=== PATIENT | male | born 1990 | race Hispanic/Latino ===

== ENCOUNTER 2021-11-17 11:10 | Emergency (ER) | payer SELFPAY ==
[2021-11-17 12:33] LABS: Absolute Lymphocytes (CBC) 0.5 K/uL (0.7-4.9); Hematocrit 50.2 % (39.6-49.0); Lymphocytes % 4.2 % (15.3-44.8); MPV 9.2 fL (7.6-11.3); RBC Red Blood Cell Count 5.94 M/uL (4.33-5.43)
[2021-11-17 12:48] LABS: Albumin 4.6 g/dL (3.4-5.0); Bilirubin Direct 0.3 mg/dL (0-0.2); Potassium 3.3 mmol/L (3.5-5.1); Protein, Total 9.4 g/dL (6.4-8.2)
[2021-11-17] MEDS ORDERED: MORPHINE 4 MG/ML SYR ONE (12:56)
[2021-11-17] MEDS ORDERED: ONDANSETRON 4 MG/2 ML VIAL ONE (12:56)
[2021-11-17] MEDS ORDERED: Ringers Lactate 1,000 ML IV ONE (12:56)
[2021-11-17 12:59] LABS: Blood Morphology Comment NOT SEEN (NOT SEEN); Platelet Estimate ADEQ
[2021-11-17 13:58] LABS: Urine Blood 2+ (Negative); Urine Glucose Negative (Negative); Urine Protein 3+ (Negative); Urine Specific Gravity >=1.030 (1.005-1.030); Urine pH 6.5 (5.0-7.0)
[2021-11-17] MEDS ORDERED: NA CHLORIDE 0.9% 250 ML ONE (15:06)
[2021-11-17] MEDS ORDERED: METOCLOPRAMIDE 10 MG/2mL INJ ONE (15:06)
--- NOTE | 2021-11-17 15:15 | RAD REPORT ---
EXAM DESCRIPTION: CT - Abdomen Pelvis W Contrast - 11/17/2021 2:58 pm CLINICAL HISTORY: abdominal pain COMPARISON: No comparisons TECHNIQUE: Biphasic, helical CT imaging of the abdomen and pelvis was performed following 100 ml non -ionic IV contrast. No oral contrast administered. All CT scans are performed using dose optimization technique as appropriate and may include automated exposure control or mA/KV adjustment according to patient size. FINDINGS: No suspicious findings in the lung bases. Diffuse fatty infiltration of the liver is present with no focal lesion. No portal vein abnormality. Spleen and pancreas or Gallbladder and biliary tree are also without suspicious finding. Symmetric renal function is seen with no hydronephrosis or suspicious renal mass. No pyelonephritis o r acute parenchymal process. No bladder abnormalities. No adrenal abnormalities. No gastric dilatation or gastric wall thickening. The appendix is normal. There are numerous fluid-fi lled common non dilated distal small bowel loops. Pattern is nonspecific but can be seen with enterit is. A few subcentimeter mesenteric lymph nodes are present. No free air, free fluid or inflammatory stranding. No hernia, mass or bulky lymphadenopathy. No suspicious bony findings. IMPRESSION: Contrast enhanced CT abdomen and pelvis showing no emergent finding. A few fluid-filled small bowel loops present. Pattern is nonspecific but can be seen with neuritis. Gallbladder, biliary tree and pancreas are unremarkable. The liver is fatty infiltrated.
--- NOTE | 2021-11-17 15:43 | RAD REPORT ---
EXAM DESCRIPTION: US - Abdomen Exam Limited - 11/17/2021 3:18 pm CLINICAL HISTORY: ABD PAIN COMPARISON: Abdomen Pelvis W Contrast dated 11/17/2021 FINDINGS: No gallstones, measurable quantity of sludge or other abnormalities within the gallbladder lumen. There is no wall thickening or pericholecystic fluid. No common duct stone or biliary tree dilatation identified. IMPRESSION: No significant gallbladder or biliary tree finding.
--- NOTE | 2021-11-17 17:02 | EDPHYS ---
Physician Documentation [facility] Name: Mandeep Camara Age: 31 yrs Sex: Male : 1990 Arrival Date: 11/17/2021 Time: 11:20 Bed 27 Private MD: ROSELINE Physician Leandro Greer HPI: 11/17 11:33 This 31 yrs old Male presents to ER via Ambulatory with complaints of jmm Vomiting/Diarrhea. 11:33 The patient presents to the emergency department with nausea, vomiting, diarrhea, jmm abdominal pain. Onset: The symptoms/episode began/occurred gradually, 1 day(s) ago. Possible causes: unknown. The symptoms are aggravated by nothing. The symptoms are alleviated by nothing. Associated signs and symptoms: Pertinent positives: abdominal pain, fever, nausea, vomiting. The patient has not experienced similar symptoms in the past. This is a 31-year-old male no chronic conditions presents emerged part with complaints of epigastric abdominal pain beginning approximately 1 day ago along with vomiting and diarrhea. Patient states symptoms are exacerbated when he eats food. Patient feels like he cannot get any fluids down. Also complains of multiple episodes of diarrhea. Denies recent antibiotic use. Denies recent travel.. Historical: - Allergies: 11:30 No Known Allergies; aa5 - Home Meds: 11:30 None [Active]; aa5 - PMHx: 11:30 None; aa5 - PSHx: 11:30 None; aa5 - Immunization history:: Client reports having NOT received the Covid vaccine. Flu vaccine is not up to date. - Social history:: Smoking status: Patient denies any tobacco usage or history of. ROS: 11:33 Constitutional: Negative for fever, chills, and weight loss, Cardiovascular: Negative jmm for chest pain, palpitations, and edema, Respiratory: Negative for shortness of breath, cough, wheezing, and pleuritic chest pain. 11:33 Abdomen/GI: Positive for abdominal pain, nausea and vomiting. 11:33 All other systems are negative. Exam: 11:33 Constitutional: This is a well developed, well nourished patient who is awake, alert, jmm and in no acute distress. Head/Face: atraumatic. Eyes: EOMI, no conjunctival erythema appreciated ENT: Moist Mucus Membranes Neck: Trachea midline, Supple Chest/axilla: Normal chest wall appearance and motion. Cardiovascular: Regular rate and rhythm. No edema appreciated Respiratory: Normal respirations, no respiratory distress appreciated 11:33 Back: Normal ROM Skin: General appearance color normal MS/ Extremity: Moves all extremities, no obvious deformities appreciated, no edema noted to the lower extremities Neuro: Awake and alert Psych: Behavior is normal, Mood is normal, Patient is cooperative and pleasant 11:33 Abdomen/GI: Inspection: abdomen appears normal, Bowel sounds: normal, Palpation: abdomen is soft and non-tender, in all quadrants. Vital Signs: 11:28 BP 135 / 96; Pulse 107; Resp 18 S; Temp 97.8(TE); Pulse Ox 98% on R/A; Weight 104.33 kg aa5 (R); Height 5 ft. 8 in. (172.72 cm) (R); 12:32 BP 131 / 79; Pulse 107; Resp 17; Pulse Ox 99% ; Pain 5/10; eo2 13:00 BP 127 / 76; Pulse 101; Resp 15; Pulse Ox 97% ; Pain 5/10; eo2 14:00 BP 125 / 67; Pulse 77; Resp 15; Pulse Ox 99% ; Pain 2/10; eo2 14:00 Pain 2/10; eo2 15:25 BP 119 / 75; Pulse 91; Resp 17; Pulse Ox 100% ; Pain 2/10; eo2 16:30 BP 123 / 66; Pulse 88; Resp 15; Pulse Ox 97% ; Pain 0/10; eo2 17:50 BP 142 / 90; Pulse 73; Resp 15; Pulse Ox 97% ; Pain 0/10; eo2 11:28 Body Mass Index 34.97 (104.33 kg, 172.72 cm) aa5 MDM: 11:33 Patient medically screened. [facility] 17:00 Data reviewed: vital signs, nurses notes. Counseling: I had a detailed discussion with [facility] the patient and/or guardian regarding: the historical points, exam findings, and any diagnostic results supporting the discharge/admit diagnosis, lab results, radiology results, the need for outpatient follow up, to return to the emergency department if symptoms worsen or persist or if there are any questions or concerns that arise at home. ED course: Patient is alert nontoxic appearance in the ED. Imaging studies negative. Patient states feeling much better. Patient given early appendicitis return precautions. Patient understood agrees plan of care. 11/17 11:36 Order name: Basic Metabolic Panel [facility] 11/17 11:36 Order name: CBC with Diff [facility] 11/17 11:36 Order name: Hepatic Function; Complete Time: 12:49 [facility] 11/17 11:36 Order name: Lipase; Complete Time: 12:49 [facility] 11/17 11:36 Order name: Basic Metabolic Panel; Complete Time: 12:49 [facility] 11/17 11:36 Order name: CBC with Automated Diff; Complete Time: 13:18 [facility] 11/17 13:00 Order name: Manual Differential; Complete Time: 13:18 [facility] 11/17 13:58 Order name: Urine Dipstick-Ancillary; Complete Time: 14:12 [facility] 11/17 14:30 Order name: CT Abd/Pelvis - IV Contrast Only; Complete Time: 15:32 [facility] 11/17 14:30 Order name: US Abdomen Limited; Complete Time: 15:47 [facility] 11/17 11:36 Order name: IV Saline Lock; Complete Time: 12:40 [facility] 11/17 11:36 Order name: Labs collected and sent; Complete Time: 12:40 [facility] 11/17 12:46 Order name: Urine Dipstick-Ancillary (obtain specimen); Complete Time: 14:01 [facility] Administered Medications: 13:00 Drug: morphine 4 mg Route: IVP; Site: right antecubital; eo2 14:00 Follow up: Pain 2/10 Adult; Response: No adverse reaction; Pain is decreased eo2 13:00 Drug: Zofran (Ondansetron) 4 mg Route: IVP; Site: right antecubital; eo2 14:02 Follow up: Response: No adverse reaction; Nausea is decreased eo2 13:00 Drug: Lactated Ringers Solution 1000 ml Route: IV; Rate: 1000 bolus; Site: right eo2 antecubital; 14:00 Follow up: Response: No adverse reaction; IV Status: Completed infusion; IV Intake: eo2 1000ml 15:21 Drug: Reglan (metoCLOPramide) 20 mg Route: IVP; Site: right antecubital; eo2 15:51 Follow up: Response: No adverse reaction eo2 15:21 Drug: NS 0.9% 250 ml Route: IV; Rate: bolus; Site: right antecubital; eo2 15:50 Follow up: Response: No adverse reaction; IV Status: Completed infusion; IV Intake: eo2 250ml Disposition Summary: 11/17/21 17:02 Discharge Ordered Location: Home [facility] Condition: Stable [facility] Diagnosis - Vomiting jmm - Diarrhea, unspecified jmm Followup: [facility] - With: Private Physician - When: 2 - 3 days - Reason: Recheck today's complaints, Continuance of care, Re-evaluation by your physician Discharge Instructions: - Discharge Summary Sheet [facility] - Food Choices to Help Relieve Diarrhea, Adult [facility] Forms: - Medication Reconciliation Form [facility] - Thank You Letter [facility] - Work release form bd - Antibiotic Education [facility] - Prescription Opioid Use [facility] Prescriptions: - ondansetron 4 mg Oral tablet,disintegrating - place 1 tablet by TRANSLINGUAL route every 4-6 hours; 20 tablet; Refills: 0, [facility] Product Selection Permitted Addendum: 11/21/2021 18:18 Co-signature as Attending Physician, Leandro Greer MD I agree with the assessment and c hurley plan of care. Signatures: Dispatcher [employer] Leandro Santillan MD MD cha Mickail, Joel, PA PA jmm Calderon, Audri, RN RN aa5 Tiffany Whalen RN RN eo2
--- NOTE | 2021-11-17 17:02 | ER ---
Nurse's Notes [facility] Name: Mandeep Camara Age: 31 yrs Sex: Male : 1990 Arrival Date: 11/17/2021 Time: 11:20 Bed 27 Private MD: Diagnosis: Vomiting;Diarrhea, unspecified Presentation: 11/17 11:28 Chief complaint: Patient states: Nausea,vomiting,diarrhea that began yesterday around aa5 1600. 11:28 Coronavirus screen: diarrhea, nausea, vomiting. Ebola Screen: No symptoms or risks aa5 identified at this time. Initial Sepsis Screen: Does the patient meet any 2 criteria? HR > 90 bpm. Does the patient have a suspected source of infection? No. Patient's initial sepsis screen is negative. Risk Assessment: Do you want to hurt yourself or someone else? Patient reports no desire to harm self or others. Onset of symptoms was November 2020. 11:28 Acuity: JAMIL 3 aa5 11:28 Method Of Arrival: Ambulatory aa5 Historical: - Allergies: 11:30 No Known Allergies; aa5 - Home Meds: 11:30 None [Active]; aa5 - PMHx: 11:30 None; aa5 - PSHx: 11:30 None; aa5 - Immunization history:: Client reports having NOT received the Covid vaccine. Flu vaccine is not up to date. - Social history:: Smoking status: Patient denies any tobacco usage or history of. Screenin:32 Abuse screen: Denies threats or abuse. Denies injuries from another. Nutritional eo2 screening: No deficits noted. Tuberculosis screening: No symptoms or risk factors identified. Fall Risk None identified. Assessment: 12:32 General: Appears in no apparent distress. comfortable, Behavior is calm, cooperative. eo2 Pain: Complains of pain in right upper quadrant. Neuro: Level of Consciousness is awake, alert, obeys commands, Oriented to person, place, time, Reports headache Denies dizziness. Cardiovascular: Denies chest pain, shortness of breath, Capillary refill < 3 seconds. Respiratory: Airway is patent Trachea midline Respiratory effort is even, unlabored, Respiratory pattern is regular, symmetrical, Denies cough, shortness of breath. GI: Abdomen is non-distended, Bowel sounds present X 4 quads. Reports RUQ abd pain onset yesterday. 12:32 GI: Reports diarrhea, nausea, vomiting. eo2 Vital Signs: 11:28 BP 135 / 96; Pulse 107; Resp 18 S; Temp 97.8(TE); Pulse Ox 98% on R/A; Weight 104.33 kg aa5 (R); Height 5 ft. 8 in. (172.72 cm) (R); 12:32 BP 131 / 79; Pulse 107; Resp 17; Pulse Ox 99% ; Pain 5/10; eo2 13:00 BP 127 / 76; Pulse 101; Resp 15; Pulse Ox 97% ; Pain 5/10; eo2 14:00 BP 125 / 67; Pulse 77; Resp 15; Pulse Ox 99% ; Pain 2/10; eo2 14:00 Pain 2/10; eo2 15:25 BP 119 / 75; Pulse 91; Resp 17; Pulse Ox 100% ; Pain 2/10; eo2 16:30 BP 123 / 66; Pulse 88; Resp 15; Pulse Ox 97% ; Pain 0/10; eo2 17:50 BP 142 / 90; Pulse 73; Resp 15; Pulse Ox 97% ; Pain 0/10; eo2 11:28 Body Mass Index 34.97 (104.33 kg, 172.72 cm) aa5 ED Course: 11:20 Patient arrived in ED. as 11:28 Arm band placed on. aa5 11:31 Bro Castellanos PA is PHCP. [facility] 11:31 Leandro Greer MD is Attending Physician. [facility] 11:46 Triage completed. aa5 12:03 Tiffany Whalen, VICTORIA is Primary Nurse. eo2 12:25 Inserted saline lock: 22 gauge in right antecubital area, using aseptic technique. eo2 Blood collected. 12:32 Patient has correct armband on for positive identification. Pulse ox on. NIBP on. Door eo2 closed. Noise minimized. Warm blanket given. 12:32 No provider procedures requiring assistance completed. eo2 12:40 Basic Metabolic Panel Sent. eo2 14:58 CT Abd/Pelvis - IV Contrast Only In Process Unspecified. EDMS 15:18 US Abdomen Limited In Process Unspecified. EDMS 15:53 CBC with Diff Sent. lr4 17:51 IV discontinued, intact. eo2 Administered Medications: 13:00 Drug: morphine 4 mg Route: IVP; Site: right antecubital; eo2 14:00 Follow up: Pain 2/10 Adult; Response: No adverse reaction; Pain is decreased eo2 13:00 Drug: Zofran (Ondansetron) 4 mg Route: IVP; Site: right antecubital; eo2 14:02 Follow up: Response: No adverse reaction; Nausea is decreased eo2 13:00 Drug: Lactated Ringers Solution 1000 ml Route: IV; Rate: 1000 bolus; Site: right eo2 antecubital; 14:00 Follow up: Response: No adverse reaction; IV Status: Completed infusion; IV Intake: eo2 1000ml 15:21 Drug: Reglan (metoCLOPramide) 20 mg Route: IVP; Site: right antecubital; eo2 15:51 Follow up: Response: No adverse reaction eo2 15:21 Drug: NS 0.9% 250 ml Route: IV; Rate: bolus; Site: right antecubital; eo2 15:50 Follow up: Response: No adverse reaction; IV Status: Completed infusion; IV Intake: eo2 250ml Intake: 14:00 IV: 1000ml; Total: 1000ml. eo2 15:50 IV: 250ml; Total: 1250ml. eo2 Outcome: 17:02 Discharge ordered by . nunu 17:51 Discharged to home ambulatory, with family. eo2 17:51 Condition: stable 17:51 Discharge instructions given to patient, Instructed on discharge instructions, follow up and referral plans. medication usage, Demonstrated understanding of instructions, follow-up care, medications, Prescriptions given X 1. 17:51 Patient left the ED. eo2 Signatures: Dispatcher [employer] EDMS Bro Castellanos PA PA jmm Martinez, Amelia as Calderon, Audri RN RN aa5 Tiffany Whalen RN RN eo2 Kristin Ortiz RN RN lr4 Corrections: (The following items were deleted from the chart) 11:46 11:38 Arm band placed on aa5 aa5 11:47 11:28 Initial Sepsis Screen: Does the patient meet any 2 criteria? No. Patient's aa5 initial sepsis screen is negative. Does the patient have a suspected source of infection? No. Patient's initial sepsis screen is negative. aa5 13:10 13:09 morphine 4 mg IVP in right antecubital eo2 eo2
[2021-11-17 17:57] VITALS: TEMP 97.8
[2021-11-17 18:04] VITALS: O2SAT 97
[2021-11-17 18:05] VITALS: BP 142/90
== END 2021-11-17 17:51 | disposition home or self-care (01) ==
LOC: ER 11:10
DX: R10.13 Epigastric pain (principal); R11.2 Nausea with vomiting, unspecified; R19.7 Diarrhea, unspecified
CPT/HCPCS: 36415; 74177; 76705; 80048; 80076; 81003; 83690; 85025; 96361; 96365; 96375; 99284; J2405; J2765; J7050; J7120; Q9967